=== PATIENT | male | born 1955 | race Caucasian/White ===

== ENCOUNTER 2021-02-06 07:18 | Inpatient (IN) ==
[~2021-02-06 07:18] MED LIST: Buffered Lidocaine 1% SYRIN 1 ml INTRADERM ONE; Lactated Ringers 1000 ml BAG 1,000 ML IV SCH; Levalbuterol 0.63MG/3ML NEB UNIT OF USE INH ONE
[2021-02-06] MEDS ORDERED: ceFAZolin 2 GM PREMIX 2 GM/50 ML BAG ONE (07:38)
[2021-02-06] MEDS ORDERED: Levalbuterol 0.63MG/3ML NEB UNIT OF USE INH ONE (07:38)
[2021-02-06] MEDS ORDERED: ROPIVACAINE 5 MG/ML 30 ML BTL (0.5%) ONE (07:41)
[2021-02-06] MEDS ORDERED: Propofol 10 MG/ML 20 ML BTL ONE ×2 (08:05→09:49)
[2021-02-06] MEDS ORDERED: Midazolam 2 mg/2 ml VIAL 1 mg/ml 2 ml VIAL (2 mg) ONE ×2 (08:05→08:28)
[2021-02-06] MEDS ORDERED: fentaNYL 100 mcg/2 ml 50 MCG/ML VIAL ONE (08:06)
[2021-02-06] MEDS ORDERED: Bupivacaine 0.5% SDV PF 30ML VIAL ONE (08:16)
[2021-02-06] MEDS ORDERED: Acetaminophen IV 1 GM/100ML 100 ML ONE (09:15)
[2021-02-06] MEDS ORDERED: Naloxone 0.4 mg VIAL 0.4 mg/ml 1 ml VIAL IV PRN (09:39)
[2021-02-06] MEDS ORDERED: fentaNYL 100 mcg/2 ml 50 MCG/ML VIAL IV PRN (09:39)
[2021-02-06] MEDS ORDERED: Ondansetron 4 mg VIAL 2 MG/ML 2 ml VIAL IV PRN ×2 (09:39→10:53)
[2021-02-06] MEDS ORDERED: HYDROmorphone 1 MG/1 ML SYRINGE IV PRN (09:39)
[2021-02-06] MEDS ORDERED: Morphine 2 MG/ML SYRINGE IV PRN (10:53)
[2021-02-06] MEDS ORDERED: Lactulose 30 ml UDC PO PRN (10:53)
[2021-02-06] MEDS ORDERED: Ondansetron ODT 4 mg TAB 4 MG TAB PO PRN (10:53)
[2021-02-06] MEDS ORDERED: Magnesium Hydroxide LIQ 30 ML UDC PO PRN (10:53)
[2021-02-06] MEDS ORDERED: oxyCODONE/Acetamin 5/325 mg TAB PO PRN (10:53)
[2021-02-06] MEDS ORDERED: diPHENhydraMINE 25 mg TAB PO PRN (10:53)
[2021-02-06] MEDS ORDERED: diPHENhydraMINE IV 50 MG/ML 1 ml VIAL (BENADRYL) IV PRN (10:53)
[2021-02-06] MEDS ORDERED: Lactated Ringers 1000 ml BAG 1,000 ML IV SCH (11:00)
[2021-02-06] MEDS ORDERED: Albuterol HFA INHALER 8 gm MDI INH PRN (14:58)
[2021-02-06 16:23] VITALS: BP 143/76
[2021-02-06] MEDS ORDERED: ceFAZolin 1 GM ADVAN 1 GM in NS 0.9% 50 ML 50 ML IVPB SCH (16:30)
[2021-02-06] MEDS ORDERED: SPIRIVA Respimat (tiotropium) 2.5 mcg/inh Inhaler INH SCH (18:00)
[2021-02-06] MEDS ORDERED: Magnesium Hydroxide LIQ 30 ML UDC PO SCH (21:00)
[2021-02-06] MEDS ORDERED: Mometasone/Formoter 100/5 MDI INH SCH (21:00)
[2021-02-07] MEDS ORDERED: Vitamin THERAPEUTIC TAB PO SCH (09:00)
== END 2021-02-06 17:15 | disposition home or self-care (01) | DRG 470 ==
LOC: OBSVTOIN 07:18 → AA 07:18 → INTOOBSV 07:18 → SSU 12:03
PROVIDERS: ADMIT Orthopaedic Surgery Adult Reconstructive Orthopaedic Surgery; ATTEND Orthopaedic Surgery Adult Reconstructive Orthopaedic Surgery

== ENCOUNTER 2022-07-09 07:30 | Inpatient (IN) ==
[~2022-07-09 07:30] MED LIST changes: +HYDROmorphone 1 MG/1 ML SYRINGE IV PRN; -Levalbuterol 0.63MG/3ML NEB UNIT OF USE INH ONE; +Naloxone 0.4 mg VIAL 0.4 mg/ml 1 ml VIAL IV PRN; +Prochlorperazine 5 mg/ml 2 ml VIAL (10 mg) IV PRN
[2022-07-09] MEDS ORDERED: Midazolam 2 mg/2 ml VIAL 1 mg/ml 2 ml VIAL (2 mg) ONE (08:10)
[2022-07-09] MEDS ORDERED: Lidocaine 2% PF 5 ML VIAL ONE (08:10)
[2022-07-09] MEDS ORDERED: Propofol 10 MG/ML 20 ML BTL ONE (08:10)
[2022-07-09] MEDS ORDERED: Dexamethasone IV 4 MG/ML VIAL 1 ml VIAL ONE (08:10)
[2022-07-09] MEDS ORDERED: Ondansetron 4 mg VIAL 2 MG/ML 2 ml VIAL ONE (08:10)
[2022-07-09] MEDS ORDERED: fentaNYL 100 mcg/2 ml 50 MCG/ML VIAL ONE (08:10)
[2022-07-09] MEDS ORDERED: ceFAZolin 2 GM PREMIX 2 GM/50 ML BAG ONE (08:18)
[2022-07-09] MEDS ORDERED: Morphine 2 MG/ML SYRINGE IV PRN (12:09)
[2022-07-09] MEDS ORDERED: Ondansetron 4 mg VIAL 2 MG/ML 2 ml VIAL IV PRN (12:09)
[2022-07-09] MEDS ORDERED: Lactulose 30 ml UDC PO PRN (12:09)
[2022-07-09] MEDS ORDERED: Magnesium Hydroxide LIQ 30 ML UDC PO PRN (12:09)
[2022-07-09] MEDS ORDERED: Ondansetron ODT 4 mg TAB 4 MG TAB PO PRN (12:09)
[2022-07-09] MEDS ORDERED: Albuterol HFA INHALER 8 gm MDI INH PRN (15:22)
[2022-07-09] MEDS: Lactated Ringers 1000 ml BAG 1,000 ML IV SCH (16:17)
[2022-07-09] MEDS: SPIRIVA Respimat (tiotropium) 2.5 mcg/inh Inhaler INH SCH (19:25)
[2022-07-09] MEDS: Mometasone/Formoter 100/5 MDI INH SCH (19:25)
[2022-07-09] MEDS: ceFAZolin 1 GM ADVAN 1 GM in NS 0.9% 50 ML 50 ML IVPB SCH (19:57)
[2022-07-09] MEDS: Magnesium Hydroxide LIQ 30 ML UDC PO SCH (21:14)
[2022-07-10] MEDS: Lactated Ringers 1000 ml BAG 1,000 ML IV SCH (02:32)
[2022-07-10] MEDS: ceFAZolin 1 GM ADVAN 1 GM in NS 0.9% 50 ML 50 ML IVPB SCH ×2 (04:06→11:34)
[2022-07-10 06:08] LABS: Hematocrit 37 % (42-52); Mean Platelet Volume 9.8 fL (7.4-10.4); Platelet Count 207 10^3/uL (150-450)
[2022-07-10 06:31] LABS: Calcium 8.4 mg/dL (8.6-10.3); Potassium 4.5 mmol/L (3.5-5.0); eGFR CKD-EPI 96.8 (>60)
[2022-07-10] MEDS: Mometasone/Formoter 100/5 MDI INH SCH ×3 (08:19→09:52)
[2022-07-10] MEDS: Magnesium Hydroxide LIQ 30 ML UDC PO SCH (08:27)
[2022-07-10] MEDS ORDERED: Vitamin THERAPEUTIC TAB PO SCH (09:00)
[2022-07-10] MEDS: SPIRIVA Respimat (tiotropium) 2.5 mcg/inh Inhaler INH SCH (09:04)
[2022-07-10 11:26] VITALS: BP 107/63
== END 2022-07-10 12:45 | disposition home or self-care (01) | DRG 470 ==
LOC: SSU → AA 08:02 → INTOOBSV 08:02
PROVIDERS: ADMIT Orthopaedic Surgery Adult Reconstructive Orthopaedic Surgery; ATTEND Orthopaedic Surgery Adult Reconstructive Orthopaedic Surgery